=== PATIENT | male | born 1955 | race Caucasian/White ===

== ENCOUNTER 2022-07-05 13:38 | Inpatient (IN) | payer OTHER ==
[~2022-07-05] VITALS: Ht 182.9 cm; Wt 104.8 kg
[2022-07-05 13:50] VITALS: BP_SYST 112
[2022-07-05] MEDS ORDERED: NACL 0.9% 1,000 ML IV ONE ×2 (14:30→15:45)
[2022-07-05 15:21] LABS: BASOPHILS # (AUTO) 0.1 K/uL (0.0-0.2); BASOPHILS % (AUTO) 1.1 % (0.0-2.0); EOSINOPHILS # (AUTO) 0.1 K/uL (0.0-0.4); EOSINOPHILS % (AUTO) 1.3 % (0.0-4.0); HEMOGLOBIN 14.7 g/dL (14.0-18.0); LYMPHOCYTES # (AUTO) 2.5 K/uL (1.0-5.5); LYMPHOCYTES % (AUTO) 27.3 % (20.5-51.5); MEAN CORPUSCULAR HEMOGLOBIN 30 pg (27-31); MEAN CORPUSCULAR HGB CONC 35 % (32-36); MEAN CORPUSCULAR VOLUME 85 fL (79.0-98.0); MONOCYTES % (AUTO) 10.7 % (1.7-9.3); NEUTROPHILS # (AUTO) 5.5 K/uL (1.8-7.7); NEUTROPHILS % (AUTO) 59.6 % (40.0-70.0); PLATELET COUNT (AUTO) 203 K/uL (130-430); RED BLOOD CELL COUNT(AUTO) 4.97 MIL/uL (4.2-6.2); RED CELL DISTRIBUTION WIDTH 13.5 % (9.0-15.0); WHITE BLOOD COUNT (AUTO) 9.3 K/uL (4.8-10.8)
[2022-07-05 15:35] LABS: ANION GAP 12 (5-15); CALCIUM 8.4 mg/dL (8.4-11.0); CHLORIDE 108 mmol/L (98-107); GFR AFRICAN AMERICAN 71 mL/min (>90); GLUCOSE 102 mg/dL (70-99); UREA NITROGEN, BLOOD 25 mg/dL (8-21)
[2022-07-05] MEDS ORDERED: COR12.5 PO (15:41)
[2022-07-05] MEDS ORDERED: PRO40 PO (15:41)
[2022-07-05 15:42] LABS: ALANINE AMINOTRANSFERASE 20 U/L (12-78); ALBUMIN 3.6 g/dL (3.4-4.8); ASPARTATE AMINOTRANSFERASE 14 U/L (10-37); CHOLESTEROL 198 mg/dL (<200); HDL CHOLESTEROL 50 mg/dL (>45); TOTAL BILIRUBIN 0.7 mg/dL (0.0-1.0); TRIGLYCERIDES 144 mg/dL (30-150)
[2022-07-05] MEDS ORDERED: ASPIRIN 81 MG TABLET(ECOTRIN) PO ONE (16:15)
[2022-07-05] MEDS ORDERED: ASPIRIN 81 MG TABLET(ECOTRIN) ONE (17:55)
[2022-07-05] MEDS: D5/0.45 NS 1,000 ML IV SCH (17:56)
[2022-07-05 19:50] VITALS: BP_SYST 123
[2022-07-05 19:51] VITALS: BP_SYST 123
[2022-07-05] MEDS: CARVEDILOL 12.5 MG TABLET (COREG) PO SCH (23:28)
[2022-07-05] MEDS ORDERED: HYDROcodone/ACETAMIN 5-325 MG TAB (NORCO/ VICODIN) PO PRN (23:30)
[2022-07-05] MEDS ORDERED: NALOXONE HCL 0.4 MG/ML AMP (NARCAN) IVP PRN ×2 (23:30)
[2022-07-05] MEDS ORDERED: LORazepam 2 MG/ML VIAL IVP PRN (23:30)
[2022-07-05] MEDS ORDERED: HYDROcodone/ACETAMIN 10-325 MG TAB PO PRN (23:30)
[2022-07-05] MEDS ORDERED: D5/0.45 NS 1,000 ML IV SCH (23:30)
[2022-07-05] MEDS ORDERED: ACETAMINOPHEN 325 MG TABLET PO PRN (23:30)
[2022-07-05] MEDS ORDERED: ONDANSETRON HCL 4 MG/2 ML VIAL IVP PRN (23:30)
[2022-07-06 01:24] VITALS: BP_SYST 119
[2022-07-06] MEDS: D5/0.45 NS 1,000 ML IV SCH ×2 (05:29→14:00)
[2022-07-06 07:24] LABS: BASOPHILS # (AUTO) 0.1 K/uL (0.0-0.2); BASOPHILS % (AUTO) 1.3 % (0.0-2.0); EOSINOPHILS # (AUTO) 0.1 K/uL (0.0-0.4); EOSINOPHILS % (AUTO) 2.2 % (0.0-4.0); HEMATOCRIT 38.1 % (36-54); LYMPHOCYTES # (AUTO) 1.9 K/uL (1.0-5.5); LYMPHOCYTES % (AUTO) 27.3 % (20.5-51.5); MEAN CORPUSCULAR HEMOGLOBIN 29 pg (27-31); MEAN CORPUSCULAR HGB CONC 34 % (32-36); MEAN CORPUSCULAR VOLUME 86 fL (79.0-98.0); MONOCYTES # (AUTO) 0.7 K/uL (0.0-1.0); MONOCYTES % (AUTO) 10.6 % (1.7-9.3); NEUTROPHILS % (AUTO) 58.6 % (40.0-70.0); PLATELET COUNT (AUTO) 170 K/uL (130-430); RED BLOOD CELL COUNT(AUTO) 4.43 MIL/uL (4.2-6.2)
[2022-07-06 07:31] VITALS: BP_SYST 135
[2022-07-06 07:39] LABS: CALCIUM 7.8 mg/dL (8.4-11.0); CREATININE 1.12 mg/dL (0.55-1.30); PHOSPHORUS 3.6 mg/dL (2.7-4.5); THYROID STIMULATING HORMONE 3.64 uIu/mL (0.34-4.82)
[2022-07-06 07:41] LABS: WHITE BLOOD COUNT (AUTO) 6.8 K/uL (4.8-10.8)
[2022-07-06] MEDS: CARVEDILOL 12.5 MG TABLET (COREG) PO SCH ×2 (08:40→21:09)
[2022-07-06] MEDS: PANTOPRAZOLE SODIUM 40 MG TAB PO SCH (08:40)
[2022-07-06 11:40] VITALS: BP_SYST 121
[2022-07-06 12:00] VITALS: BP_SYST 152
[2022-07-06 17:58] VITALS: BP_SYST 141
[2022-07-06 21:00] VITALS: BP_SYST 109
[2022-07-07 01:30] VITALS: BP_SYST 123
[2022-07-07] MEDS: D5/0.45 NS 1,000 ML IV SCH ×2 (02:55→10:00)
[2022-07-07 08:00] VITALS: BP_SYST 135
[2022-07-07 08:44] LABS: ALBUMIN 3.2 g/dL (3.4-4.8); CALCIUM 8.3 mg/dL (8.4-11.0); CREATININE 1.25 mg/dL (0.55-1.30); TOTAL BILIRUBIN 0.7 mg/dL (0.0-1.0)
[2022-07-07 08:50] LABS: BASOPHILS # (AUTO) 0.1 K/uL (0.0-0.2); EOSINOPHILS # (AUTO) 0.2 K/uL (0.0-0.4); EOSINOPHILS % (AUTO) 3.3 % (0.0-4.0); HEMATOCRIT 43.1 % (36-54); HEMOGLOBIN 14.5 g/dL (14.0-18.0); LYMPHOCYTES # (AUTO) 1.7 K/uL (1.0-5.5); LYMPHOCYTES % (AUTO) 24.7 % (20.5-51.5); MEAN CORPUSCULAR HEMOGLOBIN 29 pg (27-31); MEAN CORPUSCULAR HGB CONC 34 % (32-36); MEAN CORPUSCULAR VOLUME 86 fL (79.0-98.0); MONOCYTES # (AUTO) 0.5 K/uL (0.0-1.0); NEUTROPHILS # (AUTO) 4.2 K/uL (1.8-7.7); PLATELET COUNT (AUTO) 178 K/uL (130-430); RED BLOOD CELL COUNT(AUTO) 5.02 MIL/uL (4.2-6.2); RED CELL DISTRIBUTION WIDTH 13.4 % (9.0-15.0); WHITE BLOOD COUNT (AUTO) 6.7 K/uL (4.8-10.8)
[2022-07-07] MEDS: PANTOPRAZOLE SODIUM 40 MG TAB PO SCH (09:07)
[2022-07-07] MEDS: CARVEDILOL 12.5 MG TABLET (COREG) PO SCH (09:08)
[2022-07-07 12:46] VITALS: BP_SYST 140
[2022-07-07 12:51] VITALS: BP_SYST 140
== END 2022-07-07 13:45 | disposition home or self-care (01) | DRG 312 ==
LOC: SED 13:38 → STU 17:48 → SMU 07-07 11:12
PROVIDERS: ADMIT Preventive Medicine Preventive Medicine/Occupational Environmental Medicine; ATTEND Preventive Medicine Preventive Medicine/Occupational Environmental Medicine
PROC: 4A10X4Z Monitoring of Central Nervous Electrical Activity, External Approach (ICD-10-PCS; principal; 2022-07-07)
DX: R55 Syncope and collapse (principal); J98.11 Atelectasis; E86.0 Dehydration; E78.5 Hyperlipidemia, unspecified; I10 Essential (primary) hypertension; K21.9 Gastro-esophageal reflux disease without esophagitis; Z20.822 Contact with and (suspected) exposure to COVID-19; N28.9 Disorder of kidney and ureter, unspecified
CPT/HCPCS: 36415; 70450-TC; 70551; 71045; 76376; 80048; 80053; 80061; 83735; 83880; 84100; 84443; 84484; 85025; 93005; 93306; 93880; 95816; 96360; 97116-GP; 97163-GP; 99285; G0378